=== PATIENT | male | born 1955 | race Caucasian/White ===

== ENCOUNTER 2020-06-29 13:01 | Emergency (ER) | payer OTHER ==
[~2020-06-29] VITALS: Ht 170.2 cm; Wt 66.0 kg
[2020-06-29] MEDS ORDERED: SODIUM CHLORIDE FLUSH 10ML SYR IVF ONE (13:30)
[2020-06-29 13:40] LABS: BASOPHILS % (AUTO) 0 % (0-1); EOSINOPHILS % (AUTO) 0 % (1-7); LYMPHOCYTES % (AUTO) 11 % (22-44); MEAN CORPUSCULAR HEMOGLOBIN 31.5 pg (27.5-34.5); MEAN CORPUSCULAR HGB CONC 33.9 g/dL (33.2-36.2); MEAN PLATELET VOLUME 8.2 fL (7.4-10.4); MONOCYTES % (AUTO) 8 % (2-9); NEUTROPHILS % (AUTO) 80 % (42-75); PLATELET COUNT 268 x10^3/uL (130-400); RED BLOOD COUNT 5.37 x10^6/uL (4.38-5.82); RED CELL DISTRIBUTION WIDTH 14.5 % (9.4-14.8)
[2020-06-29 13:45] LABS: MD NO
[2020-06-29 13:50] LABS: ALANINE AMINOTRANSFERASE 45 U/L (12-78); ALBUMIN 4.4 g/dL (3.4-5.0); ANION GAP 11 mmol/L (5-15); CALCIUM 9.7 mg/dL (8.5-10.1); CHLORIDE 105 mmol/L (98-107); CREATININE 1.46 mg/dL (0.7-1.3)
[2020-06-29 13:52] LABS: ALKALINE PHOSPHATASE 65 U/L (45-117); BILIRUBIN,TOTAL 0.9 mg/dL (0.2-1.0); TOTAL PROTEIN 8.6 g/dL (6.4-8.2)
--- NOTE | 2020-06-29 13:53 | NUR ---
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
[2020-06-29] MEDS ORDERED: MORPHINE SULFATE 4 MG/ML, 1ML ONE ×2 (14:09→14:33)
[2020-06-29] MEDS ORDERED: ONDANSETRON 2MG/ML, 2ML ONE (14:09)
[2020-06-29] MEDS: MORPHINE SULFATE 4 MG/ML, 1ML IVPush PRN ×2 (14:13→14:36)
--- NOTE | 2020-06-29 14:22 | NUR ---
IV PLACED FOR CT. PT C/O 02/28 PAIN TO LEFT FLANK AND REQUESTING PAIN MEDICATION. ORDER FOR MEDICATION OBTAINED/GIVEN TO PT WITH IMMEDIATE DECREASE IN PAIN. PT PLACED ON PULSE OX AND BP CUFF. FAMILY AT BS. PT AND FAMILY UPDATED ON POC. URINAL WITHIN REACH, PT AWARE OF NEED FOR UA. WARM BLANKET PROVIDED, CALL LIGHT WITHIN REACH.
[2020-06-29] MEDS ORDERED: ONDANSETRON 2MG/ML, 2ML IVPush ONE (14:30)
--- NOTE | 2020-06-29 14:36 | NUR ---
PT REQUESTING MORE MEDICATION FOR PAIN. 2ND DOSE OF MORPHINE GIVEN FOR 10.5/10 L BACK PAIN. PT TO CT.
[2020-06-29] MEDS ORDERED: OMNIPAQUE 350 MG/ML, 100ML BOTTLE ONE (14:53)
--- NOTE | 2020-06-29 14:56 | NUR ---
PT BACK FROM CT. VIDAL LEON PLACED. CALL LIGHT WITHIN REACH.
--- NOTE | 2020-06-29 15:01 | NUR ---
OXYGEN SATS DROPPED TO 85%, PT SLEEPING. O2 AT 2LITERS VIA NC PLACED.
--- NOTE | 2020-06-29 15:17 | NUR ---
CT RESULTS BACK, PT UPDATED. AWAITING UA.
--- NOTE | 2020-06-29 15:35 | NUR ---
URINE COLLECTED/SENT TO LAB.
[2020-06-29 15:43] LABS: MICROSCOPIC NOT IND
--- NOTE | 2020-06-29 15:57 | NUR ---
UA RESULTS BACK, PT FOR RECHECK.
--- NOTE | 2020-06-29 16:10 | NUR ---
ULTRASOUND AT BEDSIDE
--- NOTE | 2020-06-29 16:49 | NUR ---
US RESULTS BACK, PT FOR RECHECK.
[2020-06-29 18:23] VITALS: BP 170/93
== END 2020-06-29 18:25 | disposition home or self-care (01) ==
LOC: ED 17:41
DX: N50.812 Left testicular pain (principal); R10.33 Periumbilical pain; R11.2 Nausea with vomiting, unspecified; R10.2 Pelvic and perineal pain; M54.5 Low back pain
CPT/HCPCS: 36415; 74177; 76870; 80053; 81003; 83690; 85025; 96374; 96375; 99285; J2270; J2405; Q9967